=== PATIENT | female | born 1990 | race Caucasian/White ===

== ENCOUNTER → 2023-02-08 09:51 | Outpatient (CLI) | payer OTHER, SELFPAY ==
[2023-02-08 10:50] LABS: HCG Quantitative /Beta subunit 174.9 mIU/mL
== END ==
PROVIDERS: Referring Provider Obstetrics & Gynecology; Visit Provider Obstetrics & Gynecology
DX: O20.9 Hemorrhage in early pregnancy, unspecified (principal)
CPT/HCPCS: 36415; 84702

== ENCOUNTER → 2023-02-10 10:17 | Outpatient (CLI) | payer OTHER, SELFPAY ==
[2023-02-10 11:17] LABS: HCG Quantitative /Beta subunit 417.7 mIU/mL
== END ==
PROVIDERS: Referring Provider Obstetrics & Gynecology; Visit Provider Obstetrics & Gynecology
DX: O20.9 Hemorrhage in early pregnancy, unspecified (principal); Z3A.00 Weeks of gestation of pregnancy not specified
CPT/HCPCS: 36415; 84702

== ENCOUNTER → 2023-02-14 09:43 | Outpatient (CLI) | payer OTHER, SELFPAY ==
[2023-02-14 11:05] LABS: HCG Quantitative /Beta subunit 2591.6 mIU/mL
== END ==
PROVIDERS: Referring Provider Obstetrics & Gynecology; Visit Provider Obstetrics & Gynecology
DX: Z87.59 Personal history of other complications of pregnancy, childbirth and the puerperium (principal)
CPT/HCPCS: 36415; 84702

== ENCOUNTER 2023-02-19 08:50 | Emergency (ER) | payer OTHER, SELFPAY ==
[2023-02-19] VITALS (9 sets, daily range): BP systolic 106–127; BP diastolic 56–73; PULSE 77–91; RESP 16; TEMP 36.8; O2SAT 98–100; BMI 23.3
--- NOTE | 2023-02-19 09:06 | DI.US.S_ITS ---
PROCEDURE: US OB <= 14 WEEKS FETUS INDICATIONS: SPOTTING/CRAMPING OUTSIDE/PRIOR DATING DATA: Last menstrual period (LMP): Unknown. LMP-based estimated date of delivery (LESLEI): Unknown. First dating scan (date and location): Today. TECHNIQUE: Real-time scanning was performed of the fetus and maternal pelvic organs, with image documentation. COMPARISON: None. FINDINGS: Embryo: Mean gestational sac size 1.1 cm: 5 weeks 6 days. Probable left ovarian corpus luteal cyst. Probable perigestational bleed measuring 1.7 x 2.2 x 0.3 cm. Heart rate: No heart tones identified. Maternal organs: Right subserosal uterine fibroid anteriorly measuring 1.5 x 1.4 x 1.4 cm. IMPRESSION: 1. Intrauterine with gestational sac and yolk sac, however no pole is identified. 2. Estimated age is 5 weeks 6 days by mean gestational sac size. 3. Perigestational bleed near the fundus measuring 1.7 x 2.2 x 0.3 cm. 4. Possible uterine subserosal fibroid measuring 1.4 x 1.5 x 1.4 cm. We strive to produce accurate, complete, and clear reports of imaging services. To assist us in improving patient care, this report was composed using standard report templates and voice recognition software. Therefore, it may contain abnormal punctuation, insertions and/or omissions. Occasional wrong-word or sound-alike substitutions may occur. Though we review the report and make efforts to correct it, we do recommend that the report be read carefully in proper context to recognize any text inaccuracies. Dictated by: Kirit Krause M.D. on 02/19/2023 at 10:19 Approved by: Kirit Krause M.D. on 02/19/2023 at 10:34
--- NOTE | 2023-02-19 09:20 | ED_ITS ---
HPI - General Chief complaint: Vaginal Bleeding Stated complaint: 6 Wks Preg/Bleeding and Craming, RH- Time Seen by Provider: 02/19/23 09:06 Source: patient Mode of arrival: Ambulatory Limitations: no limitations History of Present Illness HPI Narrative: Patient is a 32-year-old female presenting today with known about 6 weeks vaginal bleeding and cramping. She reports that she had a miscarriage initially then got and during her she had vaginal bleeding and spotting the 1st full trimester. She was having some brown spotting but yesterday it turned to bright red with more cramping called Dr. Bates who recommended she come to the ED. she is not yet had an ultrasound of this . Previous OB care was in [place]. Related Data Previous Rx's Medication Instructions Recorded cephalexin 500 mg capsule 500 mg PO BID 7 days #14 caps 02/19/23 Allergies Allergy/AdvReac Type Severity Reaction Status Date / Time No Known Drug Allergies Allergy Verified 02/19/23 12:00 Review of Systems Review of Systems ROS Unobtainable: All systems reviewed & are unremarkable except as noted in HPI and below Exam Initial Vital Signs Initial Vital Signs: Vital Signs Temperature 98.2 F 02/19/23 08:57 Pulse Rate 88 02/19/23 08:57 Respiratory Rate 16 02/19/23 08:57 Blood Pressure 122/68 02/19/23 08:57 Pulse Oximetry 100 02/19/23 08:57 Oxygen Delivery Method Room Air 02/19/23 08:57 GENERAL: Alert pleasant 32-year-old female and in no acute distress. HEENT: Head atraumatic,EOMI, pupils reactive, face symmetric, moist mucous membranes CARDIOVASCULAR: Regular rate and rhythm without murmurs, rubs or gallops. RESPIRATORY: Breath sounds equal bilaterally, no wheezes rales or rhonchi. ABDOMEN: Soft, nontender. Normoactive bowel sounds all 4 quadrants. No guarding or rebound. EXTREMITIES: Normal range of motion, no clubbing or edema. Neurovascularly intact NEUROLOGICAL: Alert and oriented x4. SKIN: Warm, dry, no laceration, no petechiae, no rashes or lesions. Course Orders Ordered: ED Orders 02/19/23 09:06 US OB <= 14 weeks fetus Stat ABO RH Type Stat 02/19/23 09:15 CBC Auto Diff [Complete Blood Count AUTO DIFF] Stat CMP [Comprehensive Metabolic Panel] Stat HCG Quantitative /Beta subunit Stat 02/19/23 10:14 Urine Culture Stat Urine Microscopic Stat Discontinued Medications Rho Immune Globulin (Rho(D) Immune Globulin 1,500 Unit Syringe) 1,500 unit IM NOW ONE Stop: 02/19/23 11:27 Last Admin: 02/19/23 12:00 Dose: 1,500 unit Documented By: RB Vital Signs Vital signs: Vital Signs - 8 hr 02/19/23 08:57 02/19/23 08:57 02/19/23 08:58 Temperature 98.2 F Pulse Rate 88 91 H Respiratory Rate 16 Blood Pressure 122/68 127/73 Pulse Oximetry 100 100 Oxygen Delivery Method Room Air 02/19/23 09:00 02/19/23 09:00 02/19/23 09:35 Temperature Pulse Rate 91 H Respiratory Rate Blood Pressure 122/68 107/56 L Pulse Oximetry 100 Oxygen Delivery Method 02/19/23 09:35 02/19/23 10:18 02/19/23 10:18 Temperature Pulse Rate 88 91 H Respiratory Rate Blood Pressure 118/68 Pulse Oximetry 99 99 Oxygen Delivery Method 02/19/23 10:30 02/19/23 10:30 02/19/23 11:00 Temperature Pulse Rate 84 Respiratory Rate Blood Pressure 116/64 110/64 Pulse Oximetry 98 Oxygen Delivery Method 02/19/23 11:00 02/19/23 11:30 02/19/23 11:30 Temperature Pulse Rate 77 81 Respiratory Rate Blood Pressure 106/63 Pulse Oximetry 98 98 Oxygen Delivery Method 02/19/23 12:00 02/19/23 12:00 Temperature Pulse Rate 84 Respiratory Rate Blood Pressure 108/68 Pulse Oximetry 100 Oxygen Delivery Method MDM - OB/Uterine Contractions Lab Data 02/19/23 09:15 02/19/23 09:15 Labs: Lab Results 02/19/23 02/19/23 02/19/23 Range/Units 09:06 09:15 09:15 WBC 3.4 L (4.5-11.0) X10^3/uL RBC 4.45 (4.0-5.2) X10^6/uL Hgb 13.4 (12.0-16.0) g/dL Hct 39.3 (36-46) % MCV 88.2 (80-100) fL MCH 30.2 (26-34) PG MCHC 34.2 (30-36) % RDW 13.2 (11.6-14.8) % Plt Count 167 (150-400) X10^3/uL Neut % (Auto) 34.8 L (50-75) % Lymph % (Auto) 48.8 H (25-40) % [place] % (Auto) 14.5 H (3-14) % Eos % (Auto) 0.7 L (2-4) % Baso % (Auto) 1.2 (0-2) % Neut # (Auto) 1200 L (2001-2958) /uL Lymph # (Auto) 1600 (9689-5201) /uL [place] # (Auto) 500 (0-900) /uL Eos # (Auto) 0 (0-450) /uL Baso # (Auto) 0 (0-100) /uL Sodium 138 (137-145) mmol/L Potassium 3.9 (3.4-5.1) mmol/L Chloride 105 (98-107) mmol/L Carbon Dioxide 24 (22-32) mmol/L BUN 6 L (7-17) mg/dL Creatinine 0.55 (0.52-1.04) mg/dL Estimated GFR > 60 (>60) mL/min BUN/Creatinine Ratio 10.9 (6-22) Glucose 99 (70-100) mg/dL Calcium 9.0 (8.4-10.2) mg/dL Total Bilirubin 0.3 (0.2-1.3) mg/dL AST 24 (14-36) IU/L ALT 22 (<35) IU/L Alkaline Phosphatase 62 (38-126) U/L Total Protein 8.0 (6.3-8.2) g/dL Albumin 4.6 (3.5-5.0) g/dL Globulin 3.4 (1.7-4.1) g/dL Albumin/Globulin Ratio 1.4 (1.0-2.8) HCG, Quant 34271 mIU/mL Urine RBC (0-5/HPF) Urine WBC (0-5/HPF) Ur Squamous Epith Cells (0-5/HPF) Urine Bacteria (None) Ur Culture Indicated? Blood Type O Negative 02/19/23 Range/Units 10:14 WBC (4.5-11.0) X10^3/uL RBC (4.0-5.2) X10^6/uL Hgb (12.0-16.0) g/dL Hct (36-46) % MCV (80-100) fL MCH (26-34) PG MCHC (30-36) % RDW (11.6-14.8) % Plt Count (150-400) X10^3/uL Neut % (Auto) (50-75) % Lymph % (Auto) (25-40) % [place] % (Auto) (3-14) % Eos % (Auto) (2-4) % Baso % (Auto) (0-2) % Neut # (Auto) (0824-1889) /uL Lymph # (Auto) (5180-0409) /uL [place] # (Auto) (0-900) /uL Eos # (Auto) (0-450) /uL Baso # (Auto) (0-100) /uL Sodium (137-145) mmol/L Potassium (3.4-5.1) mmol/L Chloride (98-107) mmol/L Carbon Dioxide (22-32) mmol/L BUN (7-17) mg/dL Creatinine (0.52-1.04) mg/dL Estimated GFR (>60) mL/min BUN/Creatinine Ratio (6-22) Glucose (70-100) mg/dL Calcium (8.4-10.2) mg/dL Total Bilirubin (0.2-1.3) mg/dL AST (14-36) IU/L ALT (<35) IU/L Alkaline Phosphatase (38-126) U/L Total Protein (6.3-8.2) g/dL Albumin (3.5-5.0) g/dL Globulin (1.7-4.1) g/dL Albumin/Globulin Ratio (1.0-2.8) HCG, Quant mIU/mL Urine RBC 1-5/hpf (0-5/HPF) Urine WBC 1-5/hpf (0-5/HPF) Ur Squamous Epith Cells 0-1 /hpf (0-5/HPF) Urine Bacteria Few (2-10) H (None) Ur Culture Indicated? Specimen cultured Blood Type Urine Dip Bedside Urine Glucose Negative Bedside Urine Bilirubin - Negative Bedside Urine Ketone ++ 40 Urine Specific [place] 1.010 Bedside Urine Occult Blood +++ Bedside Urine pH 8.5 Bedside Urine Protein - Negative Bedside Urine Urobilinogen - Negative Bedside Urine Nitrite - Negative Bedside Urine Leukocytes + 70 Esterase Imaging Data US - OB: Radiologist's Impression: PROCEDURE:? US OB <= 14 WEEKS FETUS ? INDICATIONS:? SPOTTING/CRAMPING ? OUTSIDE/PRIOR DATING DATA:? Last menstrual period (LMP):? Unknown.? LMP-based estimated date of delivery (LESLIE):? Unknown.? First dating scan (date and location):? Today.? ? TECHNIQUE:? Real-time scanning was performed of the fetus and maternal pelvic organs, with image documentation.? ? COMPARISON:? None. ? FINDINGS:? ? Embryo:? Mean gestational sac size 1.1 cm:? 5 weeks 6 days.? Probable left ovarian corpus luteal cyst.? Probable perigestational bleed measuring 1.7 x 2.2 x 0.3 cm. Heart rate:? No heart tones identified. ? Maternal organs:? Right subserosal uterine fibroid anteriorly measuring 1.5 x 1.4 x 1.4 cm. ? IMPRESSION:? 1. Intrauterine with gestational sac and yolk sac, however no pole is identified.? 2. Estimated age is 5 weeks 6 days by mean gestational sac size. 3. Perigestational bleed near the fundus measuring 1.7 x 2.2 x 0.3 cm. 4. Possible uterine subserosal fibroid measuring 1.4 x 1.5 x 1.4 cm.? ? We strive to produce accurate, complete, and clear reports of imaging services. To assist us in improving patient care, this report was composed using standard report templates and voice recognition software. Therefore, it may contain abnormal punctuation, insertions and/or omissions. Occasional wrong-word or sound-alike substitutions may occur. Though we review the report and make efforts to correct it, we do recommend that the report be read carefully in proper context to recognize any text inaccuraci es. ? ? ? Dictated by: Kirit Krause M.D. on 02/19/2023 at 10:19 ? ? [facility] Narrative Medical decision making narrative: Patient 32-year-old female presents today with vaginal bleeding. Reports that she has had complications and the past he is appointment with Dr. Bates in March but has not yet seen him. She reports yesterday she was having some brown blood and then it turned to bright red. Blood work today shows an increasing hCG previously 2500 today is 17,000 however timeframe between those numbers is greater than 48 hours needs a repeat hCG in 48 hours. She is also found to be O negative she is given RhoGAM she is had RhoGAM in the past. Dr. Bates contacted updated on patient's symptoms test results agrees with close outpatient follow-up early IUP versus miscarriage. She is also found to have UTI will start her on some antibiotics but no sign of sepsis. At this time stable to go home. Discharge Plan Departure Patient Disposition: Home Clinical Impression: Threatened , UTI (urinary tract infection) Instructions: DI for Threatened , DI for Vaginal Bleeding During Activity Restrictions/Additional Instructions: *You have been diagnosed with threatened miscarriage, bleeding in , UTI *What to do: At this time too early to tell if you will go on to have a healthy . You will have close follow-up with Dr. Bates I have notified him. He received RhoGAM *Continue to take medications as directed Keflex 500 mg twice a day for 7 days--> [facility] [place] Tylenol 1000 mg every 6 hours if needed for [id number] pain *Follow up with your primary care provider in 2-3 days or call [phone] *Return to ER if you should have increased cramping bleeding more than 2 super pads in 1 hour, passing out or any new, worsening or concerning symptoms Prescriptions: New cephalexin 500 mg capsule 500 mg PO BID 7 Days Qty: 14 0RF Referrals: Miscellaneous,MD Debbie [Primary Care Provider] - Ildefonso Bates MD [Physician] - Stand Alone Forms: Patient Portal/API
[2023-02-19 09:26] LABS: Add Manual Diff / Slide Review NO; Basophils Absolute Auto 0 /uL (0-100); Basophils Percent Auto 1.2 % (0-2); Eosinophils Absolute Auto 0 /uL (0-450); Eosinophils Percent Auto 0.7 % (2-4); Hematocrit 39.3 % (36-46); Hemoglobin 13.4 g/dL (12.0-16.0); Lymphocytes Absolute Auto 1600 /uL (1100-4500); Lymphocytes Percent Auto 48.8 % (25-40); Mean Corpuscular HGB Conc 34.2 % (30-36); Mean Corpuscular Hemoglobin 30.2 PG (26-34); Mean Corpuscular Volume 88.2 fL (80-100); Monocytes Absolute Auto 500 /uL (0-900); Monocytes Percent Auto 14.5 % (3-14); Neutrophils Absolute Auto 1200 /uL (1500-7000); Neutrophils Percent Auto 34.8 % (50-75); Platelet Count 167 X10^3/uL (150-400); Red Blood Cell Count 4.45 X10^6/uL (4.0-5.2); Red Cell Distribution Width 13.2 % (11.6-14.8); White Blood Cell Count 3.4 X10^3/uL (4.5-11.0)
[2023-02-19 09:36] LABS: Alanine Aminotransferase 22 IU/L (<35); Albumin 4.6 g/dL (3.5-5.0); Albumin Globulin Ratio 1.4 (1.0-2.8); Alkaline Phosphatase 62 U/L (38-126); Aspartate Aminotransferase 24 IU/L (14-36); BUN Creatinine Ratio 10.9 (6-22); Bilirubin Total 0.3 mg/dL (0.2-1.3); Blood Urea Nitrogen 6 mg/dL (7-17); Carbon Dioxide 24 mmol/L (22-32); Chloride 105 mmol/L (98-107); Estimated Glomerular Filt Rate > 60 mL/min (>60); Globulin 3.4 g/dL (1.7-4.1); Glucose 99 mg/dL (70-100); HEMOLYSIS < 15 (0-50); Potassium 3.9 mmol/L (3.4-5.1); Sodium 138 mmol/L (137-145)
[2023-02-19 10:27] LABS: HCG Quantitative /Beta subunit 17077 mIU/mL
[2023-02-19 10:44] LABS: Bacteria Urine Few (2-10); Culture Indicated Urine Specimen Cultured; RBC Urine 1-5/HPF (0-5/HPF); Squamous Epithelial Cell Urine 0-1 /HPF (0-5/HPF); WBC Urine 1-5/HPF (0-5/HPF)
[2023-02-19] MEDS: RHO(D) IMMUNE GLOBULIN 1,500 UNIT SYRINGE 1500 UNIT IM (12:00)
== END 2023-02-19 12:12 | disposition home or self-care (01) ==
PROVIDERS: Emergency Provider Emergency Medicine
DX: O20.0 Threatened abortion (principal); O23.41 Unspecified infection of urinary tract in pregnancy, first trimester; N39.0 Urinary tract infection, site not specified; Z3A.01 Less than 8 weeks gestation of pregnancy
CPT/HCPCS: 76801; 76817; 80053; 81003; 81015; 84702; 85025; 86900; 86901; 87077; 87086; 87186; 96372; 99283; J2790

== ENCOUNTER → 2023-02-25 16:45 | Outpatient (CLI) | payer OTHER, SELFPAY ==
--- NOTE | 2023-02-25 16:46 | DI.US.S_ITS ---
PROCEDURE: US OB <= 14 WEEKS FETUS INDICATIONS: DATING AND VIABILITY OUTSIDE/PRIOR DATING DATA: Last menstrual period (LMP): 01/04/2023 LMP-based estimated date of delivery (LESLIE): 10/11/2023 First dating scan (date and location): Not available Estimated date of delivery (LESLIE) from first dating scan: Not applicable TECHNIQUE: Real-time scanning was performed of the fetus and maternal pelvic organs, with image documentation. Endovaginal scanning was also performed to better visualize the fetus and maternal ovaries. COMPARISON: [facility], OB <= 14 WEEKS FETUS, 02/19/2023, 9:52. FINDINGS: Embryo: Single intrauterine gestational sac is seen with fetus and yolk sac seen. [place]-rump length measures 5.8 mm. Estimated gestational age is 6 weeks, 3 days. Heart rate: 127 beats per minute. A 6 mm subchorionic hemorrhage is noted. Maternal organs: Possible left ovarian hemorrhagic cyst measures 2.5 cm in size is seen. A 1.6 cm dermoid is noted in right ovary containing central echogenic focus. IMPRESSION: 1. Single live intrauterine gestation with fetus and yolk sac seen. heart rate is 127 beats per minute. Estimated gestational age based on current study is 6 weeks, 3 days. Small subchorionic hemorrhage as above. 2. Small amount of free fluid in posterior cul-de-sac and adjacent to right ovary. Possible small dermoid in right ovary as above. Possible hemorrhagic cyst is seen in left ovary as above. We strive to produce accurate, complete, and clear reports of imaging services. To assist us in improving patient care, this report was composed using standard report templates and voice recognition software. Therefore, it may contain abnormal punctuation, insertions and/or omissions. Occasional wrong-word or sound-alike substitutions may occur. Though we review the report and make efforts to correct it, we do recommend that the report be read carefully in proper context to recognize any text inaccuracies. Dictated by: Flaco Boggs M.D. on 02/25/2023 at 19:58 Approved by: Flaco Boggs M.D. on 02/25/2023 at 20:02
== END ==
PROVIDERS: Referring Provider Obstetrics & Gynecology; Visit Provider Obstetrics & Gynecology
DX: Z34.81 Encounter for supervision of other normal pregnancy, first trimester (principal); Z3A.01 Less than 8 weeks gestation of pregnancy
CPT/HCPCS: 76801; 76817

== ENCOUNTER → 2023-04-01 14:53 | Outpatient (CLI) | payer OTHER, SELFPAY ==
[2023-04-01 15:12] LABS: Specimen Label NATERA
[2023-04-01 15:15] LABS: Add Manual Diff / Slide Review NO; Basophils Absolute Auto 0 /uL (0-100); Basophils Percent Auto 0.5 % (0-2); Eosinophils Absolute Auto 100 /uL (0-450); Hematocrit 35.5 % (36-46); Hemoglobin 12.3 g/dL (12.0-16.0); Lymphocytes Absolute Auto 1800 /uL (1100-4500); Lymphocytes Percent Auto 22.7 % (25-40); Mean Corpuscular HGB Conc 34.6 % (30-36); Mean Corpuscular Hemoglobin 30.1 PG (26-34); Monocytes Absolute Auto 500 /uL (0-900); Monocytes Percent Auto 5.8 % (3-14); Neutrophils Absolute Auto 5600 /uL (1500-7000); Platelet Count 188 X10^3/uL (150-400); Red Blood Cell Count 4.08 X10^6/uL (4.0-5.2); Red Cell Distribution Width 13.2 % (11.6-14.8)
[2023-04-01 16:10] LABS: HCG Quantitative /Beta subunit 158520 mIU/mL
[2023-04-02 02:09] LABS: RPR Screen Non Reactive (Non Reactive)
[2023-04-02 09:50] LABS: Varicella IgG Antibody <135 index (Immune >165)
[2023-04-04 09:15] LABS: HIV 1 & 2 Ab/Ag 4th Gen Combo NEGATIVE (NEGATIVE); Hep C Virus Ab w/Reflex Quant NEGATIVE s/c (NEGATIVE); Hepatitis B Surface Antigen NEGATIVE s/c (NEGATIVE); Rubella Antibody IgG 69.1 IU/mL (>15)
== END ==
PROVIDERS: Obstetrics & Gynecology; Referring Provider Obstetrics & Gynecology; Visit Provider Obstetrics & Gynecology
DX: Z34.80 Encounter for supervision of other normal pregnancy, unspecified trimester (principal); Z87.59 Personal history of other complications of pregnancy, childbirth and the puerperium
CPT/HCPCS: 36415; 80055; 84702; 86787; 86803; 86850; 86900; 86901; 87389

== ENCOUNTER 2023-04-14 13:47 | Day surgery (SDC) | payer OTHER, SELFPAY ==
[2023-04-06 12:43] VITALS: BMI 23.8
[2023-04-14] VITALS (7 sets, daily range): BP systolic 104–125; BP diastolic 60–81; PULSE 72–88; RESP 14–20; TEMP 36.1–36.4; O2SAT 99–100; BMI 23.8
--- NOTE | 2023-04-14 14:58 | PM.PREOP ---
Pre-operative Note COVID-19 COVID-19 status: Not tested Criteria for continued procedure: Non-surgical alternatives not available or appropriate per current SOC Interval Note History & Physical reviewed/Exam performed by Physician: Yes Changes to H&P: No
--- NOTE | 2023-04-14 15:18 | SUR.OPER ---
Lithotomy on padded OR bed, head on pillow, arms secured on padded arm boards at <90 degrees abduction. Legs secured in padded yellow fins stirrups.
--- NOTE | 2023-04-14 16:21 | PM.GYNOP.1 ---
Operative Date/Time/Diagnoses Date of procedure: 04/14/23 Time of procedure: 15:20 Pre-op diagnosis: History of incompetent cervix Post-op diagnosis: same Procedure & Clinicians Procedure: Procedures Operation Date: 04/14/23 14:45 Actual Procedure Side Surgeon p Cervical Circlage (Castellano Procedure) Ildefonso Bates MD Indications: Savita is a 32-year-old , LESLIE 10/18/2023 at 13+ 2 weeks gestational age admitted for cerclage due to a prior history of incompetent cervix requiring a rescue cerclage at about 21 weeks gestational age. Surgeon: Ildefonso Bates Anesthesia Type: Spinal Operative Notes Findings: Parous cervix, 12-14 wk FH, old cervical laceration at 3:30, scarring from prior cerclage. Estimated cervical length 4 cm. FHT 155 BPM prior to OR and afterwards in PACU. Closure Type: not applicable Specimen(s): none Estimated blood loss (mL): 10 Blood products transfused: none Procedure in detail: With the patient under satisfactory spinal block anesthesia in the dorsal supine position, the lower abdomen, perineum, and vagina were prepped in the usual manner for cerclage. A pre-surgical safety time-out was then taken in accordance with [facility] Main OR protocols. A weighted speculum was placed in the vagina and the cervix visualized. Utilizing a Castellano technique, [place] tape was sewn into the uppermost portion of the cervix 1st at 11:30, exiting at 9:30, re-entering at 830, exiting at 630, re-entering at 5:30 a.m., exiting at 3:30 a.m., and reentering at 230 with exit at 12:30 p.m.. There was a 1 cm obstetrical laceration at 3:30 that was incorporated into the cerclage. The cerclage knot was tied loosely but firmly at 12:00 p.m. and M[place] was trimmed. Minimal bleeding was encountered and the patient was transferred to the PACU for a period of observation and recovery after having tolerated the procedure well. Complications: none Post-operative Condition: stable Disposition: PACU Plan for aftercare: Routine post-cerclage precautions.
[2023-04-14] MEDS: ONDANSETRON 4 MG/2 ML INJ IV (17:45)
== END 2023-04-14 19:15 | disposition home or self-care (01) ==
PROVIDERS: Referring Provider Obstetrics & Gynecology; Visit Provider Obstetrics & Gynecology
PROC: 0UVC7ZZ Restriction of Cervix, Via Natural or Artificial Opening (ICD-10-PCS; CPT 57700; principal; 2023-04-14 14:45)
DX: O34.31 Maternal care for cervical incompetence, first trimester (principal); Z3A.13 13 weeks gestation of pregnancy
CPT/HCPCS: 59320; J2405; J3010

== ENCOUNTER → 2023-05-31 16:13 | Outpatient (CLI) | payer OTHER, SELFPAY ==
--- NOTE | 2023-05-31 16:14 | DI.US.S_ITS ---
PROCEDURE: US OB >= 14 WEEKS FETUS INDICATIONS: 20 week anatomy scan OUTSIDE/PRIOR DATING DATA: Last menstrual period (LMP): 01/04/2023. LMP-based estimated date of delivery (LESLIE): 10/11/2023. First dating scan (date and location): 02/26/2024. Estimated date of delivery (LESLIE) from first dating scan: 10/18/2023. The calculations are made using the ultrasound LESLIE of 10/18/2023. TECHNIQUE: Real-time scanning was performed of the fetus, with image documentation and biometric measurements. Endovaginal scanning: Not performed COMPARISON: None. FINDINGS: General: A single living intrauterine gestation is present. Presentation: Vertex. Placenta: Placental position is posterior , without previa. Amniotic fluid index: 12.2 cm, normal range is 5-24 cm. Single deepest vertical pocket is 3.6 cm. heart rate: 152 beats per minute. Maternal cervical canal: 3.5 cm long. Normal lower limit is 2.5 cm. biometrics: Biparietal diameter: 4.9 cm, 20 weeks 6 days Head circumference: 17.6 cm, 20 weeks 0 days Abdominal circumference: 15.2 cm, 20 weeks 3 days Femur length: 3.2 cm, 19 weeks 6 days Clinically estimated gestational age: 20 weeks 0 days Composite gestational age from present scan: 20 weeks 2 days Estimated weight and percentile: 339 g, 58th percentile Anatomic survey: Neuro: Ventricles are non-dilated at less than 10 mm. Cisterna magna is normal at 3-11 mm. Cerebellum is normal in size and morphology. Nuchal skin fold: Normal at less than 6 mm between 14-21 weeks gestational age. Face: Nose and lips, facial profile are normal. Spine: No evidence for spina bifida. Heart: 4-chambered heart is present, with normal ventricular outflow tracts. Diaphragm: Diaphragm is intact. Stomach: Left-sided stomach is present. Kidneys: No hydronephrosis. Normal is less than 5 mm in 2nd trimester, less than 7 mm in 3rd trimester. Cord: 3-vessel cord has orthotopic insertion. Bladder: Normal in size. Extremities: All 4 extremities identified. IMPRESSION: 1. Living 2nd trimester intrauterine with no sonographic evidence of complications. Current ultrasound dates correspond to clinical dates by initial ultrasound. 2. Normal 2nd trimester anatomy study. We strive to produce accurate, complete, and clear reports of imaging services. To assist us in improving patient care, this report was composed using standard report templates and voice recognition software. Therefore, it may contain abnormal punctuation, insertions and/or omissions. Occasional wrong-word or sound-alike substitutions may occur. Though we review the report and make efforts to correct it, we do recommend that the report be read carefully in proper context to recognize any text inaccuracies. Dictated by: Lew Fregoso M.D. on 06/01/2023 at 14:28 Approved by: Lew Fregoso M.D. on 06/01/2023 at 14:32
== END ==
PROVIDERS: Referring Provider Specialist; Visit Provider Specialist
DX: Z34.82 Encounter for supervision of other normal pregnancy, second trimester (principal); Z3A.20 20 weeks gestation of pregnancy
CPT/HCPCS: 76811

== ENCOUNTER 2023-06-08 12:01 | Outpatient (CLI) | payer OTHER, SELFPAY ==
--- NOTE | 2023-06-08 12:36 | DI.US.S_ITS ---
PROCEDURE: US OB LIMITED INDICATIONS: SPOTTING. HISTORY OF CERCLAGE WITH THIS . OUTSIDE/PRIOR DATING DATA: Last menstrual period (LMP): 01/04/2023. LMP-based estimated date of delivery (LESLIE): 10/11/2023. First dating scan (date and location): 02/26/2024. Estimated date of delivery (LESLIE) from first dating scan: 10/18/2023. The calculations are made using the working LESLIE of 10/18/2023. TECHNIQUE: Real-time scanning was performed of the fetus, with image documentation. Endovaginal scanning: Non COMPARISON: None. FINDINGS: A single living intrauterine gestation is present. Presentation: Breech. Placenta: Placental position is fundal, without previa. Amniotic fluid index: 21.8 cm, normal range is 5-24 cm. Single deepest vertical pocket is 7.2 cm. heart rate: 149 beats per minute. Maternal cervical canal: 4.1 cm long. Normal lower limit is 2.5 cm. Cerclage noted Clinically estimated gestational age: 21 week 1 day IMPRESSION: Single live intrauterine consistent with a 21 week 1 day gestation. No evidence of placental abruption or cervical incompetence. Cerclage suture noted. Approved by: Renzo Laboy M.D. on 06/08/2023 at 13:02
--- NOTE | 2023-06-08 12:39 | P.TNLD_ITS ---
Visit Information Visit Information Date of evaluation: 06/08/23 Primary OB Provider: Ildefonso Bates On-call OB Provider: Ildefonso Bates Reason for Evaluation: Yes other Comments/Additional reasons for admission: Savita presents today for evaluation after finding some brownish mucus when she wiped after voiding following her exercise walking on the treadmill at the gym earlier today. She denies any pain, contractions, bleeding, leakage of fluid per vagina, or significant change in vaginal discharge. Her baby also remains active. Anatomy scan on 05/31/2023 shows normal growth and cervical length of 3.5 cm without funneling. [facility] Medical History (Updated 05/27/23 @ 16:49 by Laila Steward DO) Painful menstrual periods Irregular menstrual cycle Heavy menstrual period Peptic ulcer disease (~2003) Liver disease (~2003) Gluten enteropathy (~2003) Leukemia (~2019) Cardiac murmur IUGR (intrauterine growth restriction) in prior , depression Gestational diabetes Surgical History (Updated 04/09/23 @ 20:01 by Kerri Marin) Anesthesia History of cervical cerclage (~09/23/20) History of removal of skin mole Family History (Updated 04/09/23 @ 20:04 by Kerri Marin) Mother Skin cancer labor Migraine Gestational diabetes Father Hyperlipidemia Grandfather Colon cancer Grandfather Diabetes mellitus History of heart disease Stroke Grandmother Cancer Grandmother Hyperlipidemia Social History marital status: number of children: 1 household members: spouse and children lives independently: Yes caregiver/support person: Yes housing: house pets and animals: Yes (2 cats ( managing litter box), dog sitting) education level: college (bachelor's degree) occupational status: unemployed special nette needs: No travel history: recent ([place]) seatbelt use: always water heater temp set < 120 deg: Yes working smoke detector in home: Yes fire extinguisher in home: Yes carbon monox detector in home: Yes firearms in home: Yes firearms unloaded and locked: Yes do you feel safe at home: Yes Smoking Status: Never smoker second hand exposure: No alcohol intake: former substance use type: does not use during the past year weight has: increased > 10 lbs well-balanced diet: daily or most days daily servings fruits/ve or more times/day caffeine: Yes (aware of 200mg limit) Type(s) of exercise: walking Evaluation Evaluation Baseline heart rate: 140 Variability: Average (6-10) monitor accelerations: Present Monitor Decelerations: Absent Cervical dilation (cm): 0 Cervical effacement (%): 50 Diagnosis, Plan/Disposition Final Diagnosis (1) Cervical cerclage suture present, antepartum: Status: Acute Problem details: Placed 04/14/2023 (2) History of gestational diabetes in prior , currently : Status: Acute (3) Rh negative state in antepartum period: Status: Acute Plan/Disposition Plan: No evidence cerclage failure responsible for her third trimester spotting. Encouraged to reduce activity levels until at least the third trimester. Precautionary instructions provided. F/U PRN or as scheduled. jw OB Disposition: home
[2023-06-08 13:20] LABS: Appearance Urine UA CLEAR; Bilirubin Urine UA NEGATIVE (NEGATIVE); Color Urine UA YELLOW; Glucose Urine UA NEGATIVE (Negative); Ketones Urine UA 1+ (NEGATIVE); Leukocyte Esterase Urine UA NEGATIVE (NEGATIVE); Nitrite Urine UA NEGATIVE (Negative); Occult Blood Urine UA NEGATIVE (Negative); Protein Urine UA NEGATIVE (Negative); Specific Gravity Urine UA <=1.005 (1.000-1.035); Urobilinogen Urine UA 0.2 E.U./dL (0.2)
[2023-06-08 13:38] LABS: Bacteria Urine None Seen; Culture Indicated Urine Cult Not Indicated; RBC Urine None Seen (0-5/HPF); Squamous Epithelial Cell Urine None Seen (0-5/HPF); WBC Urine None Seen (0-5/HPF)
== END 2023-06-08 14:06 | disposition home or self-care (01) ==
LOC: LABOR 14:08 → OB 06-12 15:05
PROVIDERS: Referring Provider Obstetrics & Gynecology; Visit Provider Obstetrics & Gynecology
DX: O26.852 Spotting complicating pregnancy, second trimester (principal); O36.8120 Decreased fetal movements, second trimester, not applicable or unspecified; Z3A.21 21 weeks gestation of pregnancy
CPT/HCPCS: 59025; 76815; 76817; 81001; G0378; G0379

== ENCOUNTER → 2023-07-12 10:23 | Outpatient (CLI) | payer OTHER, SELFPAY ==
[2023-07-12 12:39] LABS: Hemoglobin 11.3 g/dL (12.0-16.0)
[2023-07-12 12:53] LABS: GTT (PREG) 1 Hour PP 50gm Dose 97 mg/dL (76-139)
== END ==
PROVIDERS: Referring Provider Obstetrics & Gynecology; Visit Provider Obstetrics & Gynecology
DX: Z34.82 Encounter for supervision of other normal pregnancy, second trimester (principal); Z3A.26 26 weeks gestation of pregnancy
CPT/HCPCS: 36415; 82950; 85014; 85018; 86850

== ENCOUNTER 2023-09-01 16:45 | Outpatient (CLI) | payer OTHER, SELFPAY | END 2023-09-01 17:22 | disposition home or self-care (01) | LOC: OB 09-05 06:50 | PROVIDERS: Referring Provider Specialist; Visit Provider Specialist | DX: O36.8130 Decreased fetal movements, third trimester, not applicable or unspecified (principal); O26.853 Spotting complicating pregnancy, third trimester; Z3A.33 33 weeks gestation of pregnancy | CPT/HCPCS: 59025; G0378; G0379 ==

== ENCOUNTER → 2023-09-13 15:21 | Outpatient (CLI) | payer OTHER, SELFPAY ==
--- NOTE | 2023-09-13 15:24 | DI.US.S_ITS ---
PROCEDURE: US OB LIMITED INDICATIONS: Growth US-Hx of IUGR in previous pregnacy, 31wks OUTSIDE/PRIOR DATING DATA: Last menstrual period (LMP): 01/04/2023. LMP-based estimated date of delivery (LESLIE): 10/11/2023. First dating scan (date and location): 02/26/2024. Estimated date of delivery (LESLIE) from first dating scan: 10/18/2023. The calculations are made using the ultrasound LESLIE of 10/18/2023. TECHNIQUE: Real-time scanning was performed of the fetus, with image documentation and biometric measurements. Endovaginal scanning: Not performed COMPARISON: [facility], , OB LIMITED, 06/08/2023, 12:56. FINDINGS: General: A single living intrauterine gestation is present. Presentation: Vertex. Placenta: Placental position is fundal , without previa. Amniotic fluid index: 11.4 cm, normal range is 5-24 cm. Single deepest vertical pocket is 3.9 cm. heart rate: 139 beats per minute. Maternal cervical canal: Close with cerclage. biometrics: Biparietal diameter: 8.4 cm, 33 weeks, 5 days, 17th percentile Head circumference: 31.2 cm, 34 weeks, 6 days, 15th percentile Abdominal circumference: 32.7 cm, 36 weeks, 4 days, 91st percentile Femur length: 6.5 cm, 33 weeks, 3 days, 10 percentile Clinically estimated gestational age: 35 weeks 0 days Composite gestational age from present scan: 34 weeks 1 day Estimated weight and percentile: 2636 g, 55th percentile Other: Not applicable. IMPRESSION: 1. Single live intrauterine consistent with 34 weeks and 1 day. Estimated weight is at the 55th percentile. 2. Overall growth is normal, however BPD, HC and FL are less than 20 percentile, as above. We strive to produce accurate, complete, and clear reports of imaging services. To assist us in improving patient care, this report was composed using standard report templates and voice recognition software. Therefore, it may contain abnormal punctuation, insertions and/or omissions. Occasional wrong-word or sound-alike substitutions may occur. Though we review the report and make efforts to correct it, we do recommend that the report be read carefully in proper context to recognize any text inaccuracies. Dictated by: Tristan Granado M.D. on 09/13/2023 at 16:58 Approved by: Tristan Granado M.D. on 09/13/2023 at 17:01
== END ==
PROVIDERS: PCP Obstetrics & Gynecology; Referring Provider Physician Assistant Medical; Visit Provider Physician Assistant Medical
DX: Z3A.34 34 weeks gestation of pregnancy; O34.33 Maternal care for cervical incompetence, third trimester; Z87.59 Personal history of other complications of pregnancy, childbirth and the puerperium
CPT/HCPCS: 76815

== ENCOUNTER → 2023-09-20 16:04 | Outpatient (CLI) | payer OTHER, SELFPAY ==
[2023-09-21 19:59] LABS: Strep Grp B PCR NEG for Grp B Strep
== END ==
PROVIDERS: PCP Obstetrics & Gynecology; Visit Provider Obstetrics & Gynecology
DX: Z34.83 Encounter for supervision of other normal pregnancy, third trimester (principal)
CPT/HCPCS: 87653

== ENCOUNTER → 2023-10-04 16:18 | Outpatient (CLI) | payer OTHER, SELFPAY | PROVIDERS: Visit Provider Obstetrics & Gynecology | DX: R82.998 Other abnormal findings in urine (principal) | CPT/HCPCS: 87086 ==

== ENCOUNTER → 2023-10-14 17:03 | Outpatient (CLI) | payer OTHER, SELFPAY | PROVIDERS: Visit Provider Obstetrics & Gynecology | DX: R82.998 Other abnormal findings in urine (principal) | CPT/HCPCS: 87086 ==

== ENCOUNTER 2023-10-18 07:32 | Inpatient (IN) | payer OTHER, SELFPAY ==
--- NOTE | 2023-10-18 08:38 | P.HPOB_ITS ---
OB HPI Date/Time Date of admission: 10/18/23 Date Patient Seen: 10/18/23 Time Patient Seen: 08:38 History of Present Condition Chief complaint: IUP, 40+0 wks, GBS neg, elective induction : 3 Para: 1 Estimated Date of Delivery: 10/18/23 Estimated Gestational Age (weeks): 40 Narrative: Savita Killian is a 32 year old admitted at 40 weeks gestational age for elective induction. The patient only as help from family for the next couple of weeks and requested induction for assistance with care of her . Patient had a cerclage placed in the early 2nd trimester due to history of incompetent cervix and the cerclage was removed at 37 weeks. course has otherwise been uneventful with the appropriate milestones throughout and solid early dating. Patient is Rh negative as received RhoGAM at 28 weeks. Yes is negative. Indications Indication for induction OB: other (Social indications) History of Present care: good care Dating criteria: LMP confirmed by 1st trimester US Ultrasounds: normal 1st trimester US and normal mid trimester US Obstetrical complications: none Medical complications: none Preadmission Labs Blood type: 0 (-) negative -: Antibody screen: positive (RhoGAM administered at 28 weeks), GBS status: negative, HBsAG: negative, HIV: negative and RPR/VDLR: negative -: Chlamydia screen: not detected and Gonorrhea screen: not detected -: Rubella: immune and Varicella: immune HCT: 33 HCAB: negative PAP: Normal Cell-free DNA: Low risk female 1 hr GTT: 97 Prior (ies) History: x 1 Evaluation Evaluation Baseline heart rate: 140 Variability: Moderate (11-25) monitor accelerations: Present Monitor Decelerations: Absent Uterine Contraction Intensity: Mild Category of Tracing: Reactive Status: Category l Dilation (cm): 3 Effacement (%): 80 Dilation: 3-4 cm Effacement: >/=80% station: -2 Position of cervix: anterior Consistency: medium Jarrett score: 9 [facility] Medical History (Updated 10/11/23 @ 16:23 by Ildefonso Bates MD) Painful menstrual periods Irregular menstrual cycle Heavy menstrual period Peptic ulcer disease (~2003) Liver disease (~2003) Gluten enteropathy (~2003) Leukemia (~2019) Cardiac murmur IUGR (intrauterine growth restriction) in prior , depression Gestational diabetes Surgical History (Updated 04/09/23 @ 20:01 by Kerri Marin) Anesthesia History of cervical cerclage (~09/23/20) History of removal of skin mole Family History (Updated 04/09/23 @ 20:04 by Kerri Marin) Mother Skin cancer labor Migraine Gestational diabetes Father Hyperlipidemia Grandfather Colon cancer Grandfather Diabetes mellitus History of heart disease Stroke Grandmother Cancer Grandmother Hyperlipidemia Social History marital status: number of children: 1 household members: spouse and children lives independently: Yes caregiver/support person: Yes housing: house pets and animals: Yes (2 cats ( managing litter box), dog sitting) education level: college (bachelor's degree) occupational status: unemployed special nette needs: No travel history: recent ([place]) seatbelt use: always water heater temp set < 120 deg: Yes working smoke detector in home: Yes fire extinguisher in home: Yes carbon monox detector in home: Yes firearms in home: Yes firearms unloaded and locked: Yes do you feel safe at home: Yes Smoking Status: Never smoker second hand exposure: No alcohol intake: former substance use type: does not use during the past year weight has: increased > 10 lbs well-balanced diet: daily or most days daily servings fruits/ve or more times/day caffeine: Yes (aware of 200mg limit) Type(s) of exercise: walking Meds Home Medications and Allergies Home Medications Medication Instructions Recorded Confirmed Type vitamin#30 30 mg iron-10 1 cap PO 02/22/23 10/14/23 History mg iron-folic acid 1 mg-omg3 capsule omeprazole 40 mg capsule,delayed 40 mg PO DAILY #90 caps 09/28/23 10/18/23 Rx release Allergies Allergy/AdvReac Type Severity Reaction Status Date / Time [place] Allergy Mild Nasal Verified 10/18/23 11:30 Discharge Review of Systems Review of Systems Narrative: Problem-specific ROS positives included in HPI OB Exam Vital signs Blood Pressure: 137/78 Pulse Rate: 115 Temperature: 97.7 F HENMT Head: normal to inspection, normocephalic and atraumatic Eyes General: appearance normal, both eyes and all related structures Resp Effort & Inspection: normal respiratory effort and able to speak in complete sentences Auscultation: clear to auscultation bilaterally Cardio Rate: regular rate Rhythm: regular rhythm Heart Sounds: S1 normal, S2 normal and no murmurs Extremities Lower extremity: Yes normal to inspection GI Inspection: normal to inspection Palpation: Yes soft and Yes no hepatosplenomegaly Uterus Location (Fundal Height): 37 Presentation: vertex Estimated Weight (lbs): 7 Objective Labs 10/18/23 09:10 Assessment and Plan Assessment and Plan Assessment and Plan narrative: ASSESSMENT 1. Intrauterine , 40+ 0 weeks gestational age 2. Social indications for induction (family support) 3. Rh-negative status 4. GBS negative status PLAN 1. Admit for induction and delivery 2. See admission orders
[2023-10-18] MEDS: LACTATED RINGERS 1,000 ML 100 ML IV ×2 (09:56→14:07)
[2023-10-18 10:00] LABS: Add Manual Diff / Slide Review NO; Basophils Absolute Auto 0 /uL (0-100); Basophils Percent Auto 0.2 % (0-2); Eosinophils Absolute Auto 0 /uL (0-450); Eosinophils Percent Auto 0.5 % (2-4); Hematocrit 35.5 % (36-46); Hemoglobin 12.3 g/dL (12.0-16.0); Lymphocytes Absolute Auto 1700 /uL (1100-4500); Lymphocytes Percent Auto 19.1 % (25-40); Mean Corpuscular HGB Conc 34.6 % (30-36); Mean Corpuscular Hemoglobin 31.3 PG (26-34); Mean Corpuscular Volume 90.4 fL (80-100); Monocytes Absolute Auto 500 /uL (0-900); Monocytes Percent Auto 5.5 % (3-14); Neutrophils Absolute Auto 6700 /uL (1500-7000); Neutrophils Percent Auto 74.7 % (50-75); Platelet Count 158 X10^3/uL (150-400); Red Blood Cell Count 3.93 X10^6/uL (4.0-5.2); Red Cell Distribution Width 14.3 % (11.6-14.8)
[2023-10-18] MEDS: OXYTOCIN PREMIX 30 UNIT/500 ML PLAST..BAG IV (10:01)
--- NOTE | 2023-10-18 10:36 | PM.OBPNLAB ---
Date/Time Date Patient Seen: 10/18/23 Time Patient Seen: 10:36 Pain Control Pain control: tolerating well Pelvic Exam Dilation (cm): 4 Effacement (%): 95 station: -1 Amniotic membrane status: Ruptured Comments: AROM 1032, clear fluid Contractions Contractions on admission: irregular Monitor mode: External Pitocin rate (mU/min): 2 Contraction frequency (min): 4 Contraction duration (min): 1 Contraction pattern: Irregular Contraction phase: Resting Contraction intensity: Mild Status status: Category l Heart Rate Baseline: 135 Monitor Accelerations: Present Monitor Decelerations: Absent Monitor Variability: Moderate Assessment and Plan Assessment: active labor Plan: continuous present management Comments: Anticipate . OK for LINH when desired.
[2023-10-18 11:25] VITALS: BP 131/72
--- NOTE | 2023-10-18 13:19 | PM.AN.REGBLK ---
Regional Block Pre-procedure Procedure: Continuous Lumbar Epidural for L&D Attending OB provider: Ildefonso Bates PMH/ROS narrative: requesting LINH for labor pain. PSH/Anesthesia history narrative: LINH for previous vaginal delivery with no complication. Exam narrative: See anesthesia pre-evaluation form. ASA Class: II Labs: Hct 35.5 % (36-46) L 10/18/23 09:10 Plt Count 158 X10^3/uL (150-400) 10/18/23 09:10 Medications: Current Medications Generic Name Dose Route Start Last Admin Trade Name Freq PRN Reason Stop Dose Admin Carboprost Tromethamine 250 mcg 10/18/23 09:34 Carboprost 250 Mcg/Ml Ampul IM Q90M PRN Bleeding Diphenhydramine HCl 25 mg 10/18/23 13:16 Diphenhydramine 50 Mg/Ml Vial IV Q10M PRN Pruritis Ephedrine Sulfate 5 mg 10/18/23 13:16 Ephedrine 50 Mg/Ml Vial IV Q5M PRN Blood pressure decrease more than 20% of baseline. Oxytocin/Lactated Ringer's 30 unit in 500 mls @ 200 mls/hr 10/18/23 09:34 Oxytocin Premix IV CONT PRN Bleeding Protocol Tranexamic Acid 1,000 mg/ 100 mls @ 200 mls/hr 10/18/23 09:34 Sodium Chloride IV NOW PRN Bleeding Oxytocin/Lactated Ringer's 30 unit in 500 mls @ 2 mls/hr 10/18/23 09:45 10/18/23 10:01 Oxytocin Premix IV 2 milliunit/min TITRATE TIFFANY 2 mls/hr Administration Protocol 2 MILLIUNIT/MIN Lactated Ringer's 1,000 mls @ 100 mls/hr 10/18/23 09:45 10/18/23 09:56 Lactated Ringers IV 100 mls/hr CONT TIFFANY Administration FENT 2MCG/ML BUPIV 0.125% EPI 200 mcg in 100 mls @ 8 mls/hr 10/18/23 13:30 Fentanyl/Bupiv/Ns 2mcg/Ml - 0.125% EPIDURAL CONT TIFFANY Lidocaine HCl 20 ml 10/18/23 09:34 Lidocaine 1% 20 Ml INJ INTRA-OP PRN Post Delivery Methylergonovine Maleate 0.2 mg 10/18/23 09:34 Methylergonovine 0.2 Mg Tablet PO Q6HR PRN Heavy Bleeding Methylergonovine Maleate 0.2 mg 10/18/23 09:34 Methylergonovine 0.2 Mg/Ml Vial IM NOW PRN Bleeding Misoprostol 800 mcg 10/18/23 09:34 Misoprostol 200 Mcg Tablet NE NOW PRN Bleeding Misoprostol 400 mcg 10/18/23 09:34 Misoprostol 200 Mcg Tablet SL NOW PRN Bleeding Nalbuphine HCl 2.5 mg 10/18/23 13:16 Nalbuphine 20 Mg/Ml Ampul IV Q10M PRN Pruritis Naloxone HCl 0.2 mg 10/18/23 09:34 Naloxone 0.4 Mg/Ml Vial IV Q2MIN PRN Opiate Reversal Oxytocin 10 unit 10/18/23 09:34 Oxytocin 10 Unit/Ml Vial IM NOW PRN Bleeding Allergies: Allergies Allergy/AdvReac Type Severity Reaction Status Date / Time [place] Allergy Mild Nasal Verified 10/18/23 11:30 Discharge Procedure Insertion date: 10/18/23 Insertion time: 12:58 Prep/Local: 1% lidocaine (3mL. Chlorhexadine prep to back.) Interspace: L3/L4 Patient position: sitting Loss of resistance with: saline HAILEY at (cm): 5 Catheter placed at SKIN (cm): 12 Catheter in SPACE (cm): 7 Insertion: No CSF, No Blood, No Paresthesia with insertion, No Paresthesia with injection and No Test dose reaction Initial Medications TEST DOSE time: 12:59 TEST DOSE: 1.5% lidocaine with epinephrine 1:200k (mL): 3 BOLUS DOSE time: 13:02 BOLUS DOSE (mL): 10 BOLUS DOSE med: 0.25% bupivacaine (plus additional 2mL of 1.5% lido w/ epi 1:200K) Infusion Initial rate (mL/hr): 8 Subsequent interventions: 1357 - Called to bedside for low pelvic pain. Pt dilated 8cm and now off of Pitocin gtt. Epidural bolus of Lidocaine 2% 5mL given, followed by 10mg IV Ephedrine. Post-procedure Anesthesia date START: 10/18/23 Anesthesia time START: 12:50 Anesthesia date END: 10/18/23 Anesthesia time END: 14:57 Post-procedure Anesthesia Assessment: Yes CV function: HR/BP stable, Yes Resp function: RR/sat/airway adequate, Yes Post-op hydration adequate, Yes Pain control adequate, Yes Nausea & vomiting absent, Yes Temperature > 36 C and Yes Mental status appropriate
[2023-10-18] MEDS: FENT 2MCG/ML BUPIV 0.125% EPI 200 MCG/100 ML PLAST..BAG 8 MCG EPIDURAL (13:50)
[2023-10-18] MEDS: ONDANSETRON 4 MG/2 ML INJ IV (14:07)
--- NOTE | 2023-10-18 15:20 | PM.OBPRVD ---
Labor & Delivery Delivery date: 10/18/23 Intrapartal Events: None Cervical ripening method: none Induction method: per pitocin protocol Delivery augmentation: rupture of membranes Delivery monitor: external FHT Route of delivery: Episiotomy description: None L&D Laceration Description: Perineal - 1st Degree Estimated blood loss (mL): 100 Anesthesia Type: Epidural Complications: None Narrative: Following a brief 2nd stage, the patient delivered spontaneously over an intact perineum of this and viable female in the left occiput anterior position. No shoulder dystocia or difficulty with delivery was encountered and skin to skin contact was initiated immediately following delivery. Delayed cord clamping was performed and once the umbilical cord was doubly clamped and cut, a cord blood sample was obtained for routine studies. The placenta was delivered with gentle cord traction and suprapubic countertraction and intravenous Pitocin was initiated immediately upon delivery to control post delivery bleeding. Fundus was found to be firm and there was minimal delivery bleeding. Inspection of the placenta showed it to be intact with a three-vessel cord inserting eccentrically but not marginal. Inspection of the perineum and introitus showed only a very superficial abrasion of the introitus in the midline and no repair was required. Sponge, needle, and instrument counts were all correct at the completion of the delivery process which was well tolerated by both mother and baby. [place] Baby 1: Infant gender: Female Presentation: vertex Position: Left Occiput Anterior Placenta delivery description: Spontaneous Cord Vessel Description: 3 Vessels score (1 min): 8 score (5 min): 9 weight: 7 lb 10.965 oz Plan for aftercare: Routine care
[2023-10-18] MEDS: IBUPROFEN 600 MG TABLET PO ×2 (17:18→23:20)
[2023-10-18 17:26] VITALS: BP 137/78; PULSE 115; TEMP 36.5
[2023-10-18] MEDS: ACETAMINOPHEN 325 MG TABLET 650 MG PO (20:32)
[2023-10-19] MEDS: ACETAMINOPHEN 325 MG TABLET 650 MG PO ×3 (02:51→14:15)
[2023-10-19] MEDS: IBUPROFEN 600 MG TABLET PO ×2 (06:38→14:06)
[2023-10-19 06:47] LABS: Add Manual Diff / Slide Review NO; Basophils Absolute Auto 0 /uL (0-100); Basophils Percent Auto 0.3 % (0-2); Eosinophils Absolute Auto 100 /uL (0-450); Eosinophils Percent Auto 0.8 % (2-4); Hemoglobin 11.9 g/dL (12.0-16.0); Lymphocytes Absolute Auto 2000 /uL (1100-4500); Lymphocytes Percent Auto 16.4 % (25-40); Mean Corpuscular HGB Conc 34.1 % (30-36); Mean Corpuscular Hemoglobin 30.8 PG (26-34); Mean Corpuscular Volume 90.2 fL (80-100); Monocytes Absolute Auto 1000 /uL (0-900); Monocytes Percent Auto 8.1 % (3-14); Neutrophils Absolute Auto 9200 /uL (1500-7000); Neutrophils Percent Auto 74.4 % (50-75); Platelet Count 146 X10^3/uL (150-400); Red Blood Cell Count 3.88 X10^6/uL (4.0-5.2); Red Cell Distribution Width 14.3 % (11.6-14.8); White Blood Cell Count 12.4 X10^3/uL (4.5-11.0)
--- NOTE | 2023-10-19 07:44 | PM.OBDS.1 ---
Discharge Providers Provider Date of admission: 10/18/23 07:32 Discharge Date: 10/19/23 Primary care physician: Doctor Avery MD Consults: 10/18/23 09:34 Consult to Anesthesiology Urgent Comment: Consulting Provider: Tino Ross Reason for consultation: Epidural 10/19/23 15:18 Consult to Customer Field Representative Routine Comment: Discharge provider: Ildefonso Bates MD Summary Hospital Course Date Patient Seen: 10/19/23 Time Patient Seen: 07:44 Diagnoses: Intrauterine gestation, 40+ 0 weeks Rh-negative status GBS negative status Hospital Course: Savita was admitted on the morning of 10/18/2023 for Pitocin induction at 40+ 0 weeks due to social indications. She was initiated on intravenous Pitocin and subsequently underwent artificial rupture of membranes which demonstrated clear fluid. She had an epidural placed and on the afternoon of 10/18/2023 delivered a viable female with Apgars of 8/9 and a weight of 3486 g (7 lb 11 oz). Following delivery both mother and baby have done extremely well with the mother experiencing prompt return of bowel and bladder function, she is ambulating independently, tolerating a regular diet, and her pain is well controlled with oral pain medications. She will be discharged at this time to home in an afebrile normotensive condition after counseling regarding precautionary symptoms, limitations of activity, medications, and plans for follow-up which will be in 6 weeks. Medications will include resumption of all preadmission medications as well as tqyn-[id number]-[id number] Tylenol and/or ibuprofen as needed for pain relief. Peripartum Data Delivery Method: Natural Vaginal Laceration Description: Perineal - 1st Degree Episiotomy description: None Procedures: Continuous lumbar epidural Spontaneous vaginal complications: none 1: Gender: Female Disposition of : home Status at Discharge Cognitive/behavioral status at discharge: oriented Functional status at discharge: independent ambulation Overall status at discharge: patient is progressing back to baseline Time Spent with Patient Time attestation: Total time spent providing and/or coordinating discharge services: Time spent: Less than 30 minutes Objective Labs 10/19/23 06:20 Labs: Laboratory Results - last 24 hr 10/18/23 10/19/23 09:10 06:20 WBC 9.0 12.4 H RBC 3.93 L 3.88 L Hgb 12.3 11.9 L Hct 35.5 L 35.0 L MCV 90.4 90.2 MCH 31.3 30.8 MCHC 34.6 34.1 RDW 14.3 14.3 Plt Count 158 146 L Neut % (Auto) 74.7 74.4 Lymph % (Auto) 19.1 L 16.4 L [place] % (Auto) 5.5 8.1 Eos % (Auto) 0.5 L 0.8 L Baso % (Auto) 0.2 0.3 Neut # (Auto) 6700 9200 H Lymph # (Auto) 1700 2000 [place] # (Auto) 500 1000 H Eos # (Auto) 0 100 Baso # (Auto) 0 0 Blood Type O Negative Antibody Screen Positive Antibody Identification Anti-D Exam Const General: cooperative and comfortable Nutritional Appearance: average body habitus Orientation: alert and oriented x3 HENMT Head: normal to inspection, atraumatic and abrasion Ears: hearing grossly normal bilaterally Face and sinus: face symmetric Eyes General: appearance normal, both eyes and all related structures Conjunctivae: conjunctivae normal Sclera: sclerae normal EOM: EOM intact bilaterally Neck Neck: normal visual inspection Resp Effort & Inspection: normal respiratory effort and able to speak in complete sentences Auscultation: clear to auscultation bilaterally Cardio Rate: regular rate Rhythm: regular rhythm Heart Sounds: S1 normal, S2 normal and no murmurs GI Inspection: normal to inspection Palpation: soft and no hepatosplenomegaly External Female Exam: other (No significant bleeding noted) Extrem General: no calf tenderness Psych Appearance: grossly normal Mental Status: mental status grossly normal Speech and Movement: speech and movement normal Mood: congruent mood Affect: normal affect Attitude: cooperative Thought Process: normal Thought Content: normal Judgment: judgment good Discharge Plan Discharge Plan Patient Disposition: Home Provider Discharge Comment: Please review the written instructions you received when you were discharged from the hospital. Your follow-up is scheduled for 6 weeks after delivery and I look forward to seeing you then. If however in the meanwhile you have any issues, concerns, or questions, please contact the office either by phone at [phone], or via the patient portal. Discharge orders & Medications Prescriptions: Continued omeprazole 40 mg capsule,delayed release(DR/EC) 40 mg PO DAILY Qty: 90 2RF PNV #[id number] 30 mg iron-10 mg iron-1 mg capsule 1 cap PO Follow up/Referrals: Doctor Varela MD [Primary Care Provider] - Ildefonso Bates MD [Physician] - Discharge Health Status Multidrug resistant organism: No MDRO Diet/Activity/Treatments Diet: Diet as Tolerated Activity: As tolerated Other treatments: Lowj-bli-kflrfhh Tylenol and/or ibuprofen may be used for pain relief. Nmdh-wpu-afprprv stool softeners/or MiraLax be used as needed for constipation. Skin/Wound/Dressing Care Report to your healthcare provider any signs of infection, such as:: chills, fever, increased pain and unusual drainage Dressing: N/A Visit Report/Discharge Packet Instructions: DI for Labor and Delivery, Vaginal , DI for and Nipple Soreness Stand Alone Forms: Patient Portal/API, Stroke Signs & Symptoms Discharge Data Primary Care Provider: Doctor Avery
[2023-10-19] MEDS: DOCUSATE 100 MG CAPSULE PO (08:43)
--- NOTE | 2023-10-23 13:28 | P.CONS_ITS ---
History of Present Illness Consult details Date Patient Seen: 10/23/23 Time Patient Seen: 12:22 Chief complaint: IUP, 40+0 wks, GBS neg, elective induction Reason for consult: day number 5, depression Requesting provider: Efe Amaral Narrative: Patient is a 32-year-old who is day 5. She delivered on Tuesday at which time she had an uneventful delivery. She states that she is now having difficulty with sleep she is also having difficulty with as well as now is developing some depression. Upon careful questioning she denies any homicidal or suicidal ideation. She states following her delivery of her last infant she had severe depression requiring hospitalization as well as Zoloft. She is this point is requesting re-initiation versus Zoloft. As well as consultation. I have discussed with her the returned to Zoloft she states she started 25 mg last time and will resume this a prescription has been called into [facility]'s pharmacy. I have also called in to Ofelia Aggarwal our artist consultant should try and make an appointment so she can get seen as soon as possible. We will also obtain an appointment with her OB provider. I have discussed this plan with the patient and she concurs she has also been told that should things get progressively worse she can contact me through the answering service. Meds Home Medications and Allergies Home Medications Medication Instructions Recorded Confirmed Type vitamin#30 30 mg iron-10 1 cap PO 02/22/23 10/14/23 History mg iron-folic acid 1 mg-omg3 capsule omeprazole 40 mg capsule,delayed 40 mg PO DAILY #90 caps 09/28/23 10/18/23 Rx release Allergies Allergy/AdvReac Type Severity Reaction Status Date / Time [place] Allergy Mild Nasal Verified 10/18/23 11:30 Discharge Objective Labs 10/19/23 06:20 [facility] Medical History (Updated 10/11/23 @ 16:23 by Ildefonso Bates MD) Painful menstrual periods Irregular menstrual cycle Heavy menstrual period Peptic ulcer disease (~2003) Liver disease (~2003) Gluten enteropathy (~2003) Leukemia (~2019) Cardiac murmur IUGR (intrauterine growth restriction) in prior , depression Gestational diabetes Surgical History (Updated 10/23/23 @ 13:33 by Efe Amaral MD) Anesthesia History of cervical cerclage (~09/23/20) History of removal of skin mole Family History (Updated 04/09/23 @ 20:04 by Kerri Marin) Mother Skin cancer labor Migraine Gestational diabetes Father Hyperlipidemia Grandfather Colon cancer Grandfather Diabetes mellitus History of heart disease Stroke Grandmother Cancer Grandmother Hyperlipidemia Social History marital status: number of children: 1 household members: spouse and children lives independently: Yes caregiver/support person: Yes housing: house pets and animals: Yes (2 cats ( managing litter box), dog sitting) education level: college (bachelor's degree) occupational status: unemployed special nette needs: No travel history: recent ([place]) Safety seatbelt use: always water heater temp set < 120 deg: Yes working smoke detector in home: Yes fire extinguisher in home: Yes carbon monox detector in home: Yes firearms in home: Yes firearms unloaded and locked: Yes do you feel safe at home: Yes Tobacco & Substance Use Smoking Status: Never smoker second hand exposure: No alcohol intake: former substance use type: does not use Diet and Exercise during the past year weight has: increased > 10 lbs well-balanced diet: daily or most days daily servings fruits/ve or more times/day caffeine: Yes (aware of 200mg limit) Type(s) of exercise: walking Assessment & Plan Assessment and plan (1) Status post vaginal delivery: Status: Acute Assessment & Plan narrative: Patient is a 32-year-old female she is 5 days status post vaginal delivery. At this point she appears to be developing depression was difficulty with . She does have her parents as well as her available for her at home. I have attempted to contact the career development specialist and left a message for her to be seen I [facility] Zoloft 25 mg # 14. I have also encouraged her to try and have her or mother take care of the so she can get some sleep. I have reassured her that should she have any further problems she should contact me for further assistance.
== END 2023-10-19 14:58 | disposition home or self-care (01) | DRG 807 ==
PROVIDERS: Admitting Provider Obstetrics & Gynecology; Referring Provider Obstetrics & Gynecology; Visit Provider Obstetrics & Gynecology
DX: O80 Encounter for full-term uncomplicated delivery (principal); Z37.0 Single live birth; Z3A.40 40 weeks gestation of pregnancy
CPT/HCPCS: 36415; 59050; 59400; 85025; 86850; 86870; 86900; 86901; G0379; J2405; J2590

== ENCOUNTER → 2024-10-02 12:49 | Outpatient (CLI) | payer OTHER, SELFPAY ==
[2024-10-02 13:57] LABS: Appearance Urine UA CLEAR; Bilirubin Urine UA NEGATIVE (NEGATIVE); Color Urine UA YELLOW; Glucose Urine UA NEGATIVE (Negative); Ketones Urine UA NEGATIVE (NEGATIVE); Leukocyte Esterase Urine UA NEGATIVE (NEGATIVE); Nitrite Urine UA NEGATIVE (Negative); Occult Blood Urine UA NEGATIVE (Negative); Protein Urine UA NEGATIVE (Negative); Specific Gravity Urine UA 1.015 (1.000-1.035); Urobilinogen Urine UA 0.2 E.U./dL (0.2)
[2024-10-02 14:20] LABS: Bacteria Urine Few (2-10); Culture Indicated Urine Specimen Cultured; RBC Urine None Seen (0-5/HPF); Squamous Epithelial Cell Urine 10-30 /HPF (0-5/HPF); Urine Volume 10mL (spun); WBC Urine 5-10/HPF (0-5/HPF)
== END ==
LOC: LAB 12:50
PROVIDERS: PCP Family Medicine; Referring Provider Family Medicine; Visit Provider Family Medicine
DX: R30.0 Dysuria (principal)
CPT/HCPCS: 81001; 87086